=== PATIENT | female | born 1985 | race Caucasian/White ===

== ENCOUNTER 2022-06-02 16:19 | Emergency (ER) | payer OTHER ==
[~2022-06-02] VITALS: Ht 162.6 cm; Wt 110.4 kg
[2022-06-02 16:54] VITALS: BP 160/91
--- NOTE | 2022-06-02 17:15 | NUR ---
Patient ambulated to bed 7 with steady gait.
--- NOTE | 2022-06-02 17:36 | NUR ---
Dr. Lyman evaluating patient at beside.
[2022-06-02] MEDS ORDERED: NACL 0.9% 1,000 ML IV ONE (17:40)
--- NOTE | 2022-06-02 17:48 | NUR ---
IV started bloodwork obtained, handed to CPT Millicent at bedside.
--- NOTE | 2022-06-02 17:51 | NUR ---
37 y/o female bib self with c/o LLQ pain x 4 days.Denies any constipation, fever, chills or SOB. Denies any sick contacts or new foods. PMH: Gall Bladder Removal, Tubal Ligation, Pre-DM, HTN, NKDA
[2022-06-02 17:53] LABS: BASOPHILS # (AUTO) 0.1 K/uL (0.00-0.22); BASOPHILS % (AUTO) 0.7 % (0.0-2.0); EOSINOPHILS # (AUTO) 0.3 K/uL (0-0.4); EOSINOPHILS % (AUTO) 2.9 % (0.0-4.0); HEMATOCRIT 38.5 % (36-48); HEMOGLOBIN 12.9 g/dL (12.0-16.0); MEAN CORPUSCULAR HEMOGLOBIN 28 pg (27-31); MEAN CORPUSCULAR HGB CONC 34 g/dL (33-37); MEAN CORPUSCULAR VOLUME 84.2 fL (80-94); MONOCYTES # (AUTO) 0.5 K/uL (0.8-1.0); NEUTROPHILS # (AUTO) 6.5 K/uL (1.8-7.7); NEUTROPHILS % (AUTO) 62.4 % (42.2-75.2); PLATELET COUNT (AUTO) 280 K/uL (140-450); RED BLOOD CELL COUNT(AUTO) 4.57 MIL/uL (4.20-5.40); RED CELL DISTRIBUTION WIDTH 15.2 % (11.6-13.7); WHITE BLOOD COUNT (AUTO) 10.5 K/uL (4.8-10.8)
[2022-06-02 18:13] LABS: ALBUMIN 3.4 g/dL (3.4-5.0); ANION GAP 14.1 (8-16); CARBON DIOXIDE 27.5 mmol/L (21-32); CREATININE 0.8 mg/dL (0.6-1.3); POTASSIUM 3.6 mmol/L (3.5-5.1); TOTAL BILIRUBIN 0.3 mg/dL (0.0-1.0)
--- NOTE | 2022-06-02 19:11 | NUR ---
Patient returned from CT
--- NOTE | 2022-06-02 19:17 | NUR ---
Report given to LOI Ricks for transfer of care.
[2022-06-02] MEDS ORDERED: AMOXIL/CLAVULANATE 875/125 MG 1 TAB PO ONE (20:35)
[2022-06-02] MEDS ORDERED: AMOX1TAB8 PO (20:42)
[2022-06-02 20:54] VITALS: BP 128/84
--- NOTE | 2022-06-03 09:02 | NUR ---
LATE ENTRY. NS 0.9% DISCONTINUED ON 06/02/22 AT 2056.
== END 2022-06-02 20:56 | disposition home or self-care (01) ==
LOC: MED 16:19
DX: K57.92 Diverticulitis of intestine, part unspecified, without perforation or abscess without bleeding (principal); Z90.49 Acquired absence of other specified parts of digestive tract; Z98.890 Other specified postprocedural states
CPT/HCPCS: 36415; 74177; 80053; 81002; 81025; 83690; 85025; 96360; 96361; 99285; J7030; Q9967